=== PATIENT | female | born 1930 | race Hispanic/Latino ===

== ENCOUNTER → 2017-06-28 | Outpatient (CLI) | payer MEDICARE | END | disposition home or self-care (01) | LOC: RAH 12:44 | PROVIDERS: ATTEND Family Medicine | DX: M48.061 Spinal stenosis, lumbar region without neurogenic claudication (principal); J44.9 Chronic obstructive pulmonary disease, unspecified; I10 Essential (primary) hypertension; M25.78 Osteophyte, vertebrae; G57.91 Unspecified mononeuropathy of right lower limb | CPT/HCPCS: 72148 ==